=== PATIENT | male | born 1975 | race Asian ===

== ENCOUNTER 2024-05-03 09:36 | Outpatient (CLI) | payer OTHER ==
--- NOTE | 2024-05-03 10:37 | Sleep Patient Instructions ---
Sleep Center Visit Summary - Patient Visit Information Reason for Visit: Initial consultation - Patient Instructions Additional Instructions: You will continue with CPAP therapy with pressure set at 14 cmH2O. A supply prescription will be updated with your DME supplier. I have added an order to update your PAP machine. Please call the office to schedule a compliance follow up once you get your new device. This will be faxed over once we have a copy of your sleep study. We encourage you to continue to try to lose weight. Please follow up with the sleep care office one month after obtaining new device. - Clinic Information Contact: [facility] [address] [place] [address] [email or web address] T: [phone]
--- NOTE | 2024-05-03 10:44 | SLEEP CARE CONSULTATION ---
Information from patient questionnaire entered by Garfield Malik. I have reviewed and concur with the information entered by Garfield Malik. This document represents the service I personally performed and the decisions made by , Sonam Mejia ARNP. History of Present Illness Service Date and Time: 05/03/2024 0936 Reason for Visit: New patient, Previously diagnosed sleep apnea, sleep apnea on CPAP therapy Chief Complaint: reports: Other (Update supplies) Date of Onset: 7 - 8 years Usual bedtime: 10 PM Snores at night: No Observed to quit breathing while asleep: Yes Sleeps alone due to snoring: No Number of times waking at night: Once Reasons for waking at night: reports: Bathroom Toss, Turn, or Twitch while sleeping: Yes Recalls having dreams: Yes Usually gets out of bed at: 6 AM Feels refreshed in the morning: Yes Morning headache: No Sleepy or fatigued during the day: No Ever fallen asleep while driving: No Takes day naps: Yes Dreams during day naps: Yes Prior sleep studies: Yes Year and Where: [facility] and [place], [place] Additional HPI information: LULA MCKEON was previously diagnosed to have unknown, AHI unknown, sleep apnea-hypopnea syndrome about 7 years ago in [facility] and then had another in [place], [place] and comes in today to establish care for CPAP therapy. - Parasomnia Symptoms Ever been unable to move upon waking from sleep: No Walks in sleep: No Talks in sleep: Yes Ever acted out dreams in sleep: No Ever felt weak in the knees when startled or emotional: No Bothered by creepy, crawly, restless sensations in legs: No Problems with memory or concentration: No CPAP Compliance Data - Data Reviewed with Patient Average duration of nightly device use: 8 h 21 min Compliance rate %: 99 (89/90 days used) Current pressure setting (cmH2O): 14 Average residual AHI: 0.8 Central apnea: 0.1 Obstructive apnea: 0.3 Hypopnea: 0.2 Average large leak: 11.9 L/min Compliance data discussion: He has a Resmed Airsense 10 that was set up in 03/23/2018. It is giving him a message that the motor has exceeded is life. He has been getting his supplies from [employer]. He is using a full face mask. He last changed his cushion last week. Subjective Patient concerns: denies: aerophagia, mask discomfort, air blowing in eyes, mask leak noise, condensation in mask/hose, nasal congestion, dry mouth, nose, throat, epistaxis Observed to snore while using device: No Current pressure setting perceived as: comfortable On therapy, patient: reports: sleeping better, awakening more refreshed, being more awake and alert during the day, more rested overall. denies: drowsiness while driving Initial [place] Sleepiness Scale score: 5 (05/03/24) Past Medical History Past Medical History: reports: Hypertension, Gout Social History The patient's occupation is a [employer] in the [place]. Patient is and lives in [place]. Have you smoked in the past 12 months: No Quit date: 1994 Alcohol use: Yes Alcohol amount and frequency: 2 glasses of wine weekly Caffeine use: Yes Caffeine amount and frequency: 2 cups of coffee every day Family History Family history of sleep disordered breathing: Yes Family Hx Sleep Apnea: Sibling: Snoring, Sleep apnea - Treated Allergies and Home Medications Known drug allergies: No Drug allergies reviewed: Yes Home medication list reviewed: Yes (as listed) Allergy and home medication list: Allergies No Known Drug Allergies Allergy (Verified 05/03/24 10:25) Home Medications Allopurinol 300 mg ORAL DAILY 05/03/24 [History] Losartan/Hydrochlorothiazide See Rx Instructions .ROUTE .COMPLEX 05/03/24 [History] Review of Systems Cardiovascular: reports: high blood pressure, irregular heart rate or pulse Gastrointestinal: denies: heartburn Neurological: denies: headaches Psychiatric: denies: anxiety, depression Ear/Nose/Throat: denies: tonsillectomy, wisdom teeth removed Physical Exam Vital signs obtained and entered by: Sonam Swift NP Blood Pressure: 154/100 Cuff size: long (right arm) Heart Rate: 78 O2 Saturation: 97 Height: 5 ft 8.5 in Weight: 294 lb 6.4 oz Body Mass Index: 44.1 BMI Classification: Morbidly Obese Neck circumference: 21.25 (inches) Heart: regular rate and rhythm Lungs: clear bilaterally Impression and Plan 1. Obstructive Sleep Apnea-Hypopnea Syndrome, unknown, with good treatment compliance and good apnea control. On CPAP therapy, the patient has better sleep quality and is more rested overall. He has significant improvement of his sleep apnea and is satisfied with current CPAP therapy. We do not have a copy of his sleep study but are waiting on faxes this morning. He has a ResMed Airsense 10 that is giving him an error message stating his machine has exceeded its motor life. He last had his machine updated in 2018. The patients CPAP is over 5 years old and of reasonable use. Thus, the CPAP will be updated. A DWO prescription will be made once we have a copy of his sleep study and will be faxed to his DME supplier, [employer]. He would like to update his full face mask. He occasionally gets mcgee on his nose from his mask. I will add a mask refitting to his prescription for supplies. Compliance guidelines for new device and follow up discussed. Patient's apnea severity and rationale for treatment to reduce apnea, improve sleep quality and reduce cardiovascular and cerebrovascular events was reviewed. I also reviewed the benefit of consistent device use of CPAP for hypertension. 2. Obesity, unspecified. Currently patients BMI is 44.1. Obesity increases the risk of apnea, CPAP pressure requirements and overall health risks especially cardiovascular and diabetes. Thus patient is advised to lose weight. * Continue CPAP pressure at 14 cmH2O * Update machine * Update supplies * Mask refitting for full face mask * Notify me if snoring with mask or feeling that the pressure is too much or too little * Attempt to lose weight * Call this office if any problems using CPAP * Return for follow up one month after obtaining new device, or sooner if concerns arise Counseling Topics: Spare mask, Weight loss health impact Prescriptions: Auto CPAP, Device supplies (with mask refitting, full face mask) Visit Type: In Office Time Spent with Patient (minutes): 32 Provider Statement: I spent 100% of the Face to Face Visit with the patient with greater than 50% spent counseling the patient and coordination of care.
[2024-05-03 11:02] VITALS: BP 154/100; O2SAT 97
== END 2024-05-03 09:37 | disposition home or self-care (01) ==
LOC: SC 09:36
PROVIDERS: ATTEND Nurse Practitioner Family
DX: G47.33 Obstructive sleep apnea (adult) (pediatric) (principal); E66.01 Morbid (severe) obesity due to excess calories; Z68.41 Body mass index [BMI] 40.0-44.9, adult
CPT/HCPCS: 99203; 99212